=== PATIENT | male | born 1960 | race African-American/Black ===

== ENCOUNTER 2016-10-12 19:16 | Emergency (ER) | payer OTHER ==
[~2016-10-12] VITALS: Ht 172.7 cm; Wt 72.6 kg
[~2016-10-12 19:16] MED LIST: ACETAMINOPHEN-1 EAC2; CIPROFLOXACIN500 M1 PO; COLACE100 MG PO; FLAGYL500 MG PO; FOLIC ACID1 MG PO; HYDROXYCHLOROQ200 M1 PO; LORTAB 5 MG/5001 TA1 PO; METHOTREXATE 22.5 MG PO; NOHOMEMEDICATIONS; NORCO 5-325 TA1 EACH PO; ONDANSETRON HCL4 M2 PO; PHENERGAN 25 MG25 M1 PO; PREDNISONE 1 MG1 M1 PO; PREDNISONE 10 M10 M1; PROCTOFOAM-HC F10 GM RECTAL
[2016-10-12 19:53] LABS: ABSOLUTE NEUTROPHILS 7.5 thou/uL (1.4-8.2); BASOPHILS 0.7 % (0.0-2.0); EOSINOPHILS 0.6 % (0.0-3.0); HEMATOCRIT 44.3 % (42.0-52.0); HEMOGLOBIN 14.5 gm/dL (14.0-18.0); MANUAL DIFF NO; MCH 26.6 pg (26.0-34.0); MCHC 32.8 g/dL (28.0-37.0); MONOCYTES 3.9 % (1.0-8.0); PLATELET COUNT 301 thou/uL (150-400); POLYS 79.8 % (36.0-66.0); RBC 5.47 mil/uL (4.50-6.00); RDW 14.8 % (10.5-14.5); WBC 9.4 thou/uL (4.0-11.0)
[2016-10-12 20:03] LABS: CALCIUM 8.7 mg/dL (8.5-10.1); CREATININE 1.1 mg/dL (0.7-1.3); POTASSIUM 3.9 mmol/L (3.5-5.1)
[2016-10-12 20:08] LABS: ALBUMIN 3.7 g/dL (3.4-5.0); TOTAL BILIRUBIN 0.4 mg/dL (<0.1-1.0); TOTAL PROTEIN 7.6 g/dL (6.4-8.2)
[2016-10-12 20:42] LABS: URINE BILIRUBIN NEGATIVE (Negative); URINE BLOOD NEGATIVE (Negative); URINE GLUCOSE-RANDOM* NEGATIVE (Negative); URINE KETONES 2+ (Negative); URINE LEUKOCYTES-REFLEX NEGATIVE (Negative); URINE PROTEIN (DIPSTICK) NEGATIVE (Negative); URINE SPECIFIC GRAVITY 1.015 (1.003-1.035); URINE UROBILINOGEN 0.2 E.U./dl (0.2-1.0)
[2016-10-12 20:44] LABS: URINE COLOR YELLOW
[2016-10-12 20:51] LABS: AMP/METHAMP Negative (Negative); BARBITURATES Negative (Negative); BENZODIAZEPINES Negative (Negative); COCAINE Negative (Negative); METHADONE Negative (Negative); OPIATES POSITIVE (Negative); PCP Negative (Negative); THC POSITIVE (Negative)
[2016-10-12] MEDS ORDERED: PEPCID40 MG PO (21:04)
[2016-10-12] MEDS ORDERED: BENTYL 20 MG TA20 M1 PO (21:04)
[2016-10-12] MEDS ORDERED: PHENERGAN 25 MG25 M1 PO (21:04)
== END 2016-10-12 21:09 | disposition home or self-care (01) ==
LOC: ER 19:16
PROVIDERS: Emergency Medicine
DX: R11.2 Nausea with vomiting, unspecified (principal); F12.10 Cannabis abuse, uncomplicated; M41.9 Scoliosis, unspecified; M19.90 Unspecified osteoarthritis, unspecified site; L93.0 Discoid lupus erythematosus; K64.9 Unspecified hemorrhoids; Z88.5 Allergy status to narcotic agent; Z88.6 Allergy status to analgesic agent; F17.210 Nicotine dependence, cigarettes, uncomplicated

== ENCOUNTER 2017-03-13 18:11 | Emergency (ER) | payer OTHER ==
[~2017-03-13] VITALS: Ht 162.6 cm; Wt 59.0 kg
[~2017-03-13 18:11] MED LIST changes: +BENTYL 20 MG TA20 M1 PO; +PEPCID40 MG PO
[2017-03-13 18:35] LABS: ABSOLUTE NEUTROPHILS 7.8 thou/uL (1.4-8.2); BASOPHILS 0.7 % (0.0-2.0); EOSINOPHILS 1.7 % (0.0-3.0); HEMOGLOBIN 14.4 gm/dL (14.0-18.0); LYMPHOCYTES 23.9 % (24.0-44.0); MCH 26.2 pg (26.0-34.0); MCHC 32.7 g/dL (28.0-37.0); MCV 80.1 fL (80.0-100.0); MONOCYTES 4.8 % (1.0-8.0); PLATELET COUNT 344 thou/uL (150-400); POLYS 68.9 % (36.0-66.0); RBC 5.49 mil/uL (4.50-6.00); RDW 14.9 % (10.5-14.5); WBC 11.4 thou/uL (4.0-11.0)
[2017-03-13 18:36] LABS: MANUAL DIFF NO
[2017-03-13 18:40] LABS: CALCIUM 9.4 mg/dL (8.5-10.1); CREATININE 1.1 mg/dL (0.7-1.3); POTASSIUM 4.2 mmol/L (3.5-5.1)
[2017-03-13 18:46] LABS: ALBUMIN 4.4 g/dL (3.4-5.0); DIRECT BILIRUBIN 0.1 mg/dL (<0.1-0.3); TOTAL BILIRUBIN 0.3 mg/dL (<0.1-1.0); TOTAL PROTEIN 9.1 g/dL (6.4-8.2)
[2017-03-13 21:32] LABS: URINE BILIRUBIN NEGATIVE (Negative); URINE BLOOD NEGATIVE (Negative); URINE COLOR YELLOW; URINE GLUCOSE-RANDOM* NEGATIVE (Negative); URINE KETONES 1+ (Negative); URINE LEUKOCYTES-REFLEX NEGATIVE (Negative); URINE PROTEIN (DIPSTICK) NEGATIVE (Negative); URINE UROBILINOGEN 0.2 E.U./dl (0.2-1.0)
[2017-03-13] MEDS ORDERED: PERCOCET 5-3251 EACH PO (23:57)
[2017-03-13] MEDS ORDERED: ZOFRAN ODT4 MG PO (23:57)
== END 2017-03-14 00:15 | disposition home or self-care (01) ==
LOC: ER 18:11
PROVIDERS: Emergency Medicine
DX: R10.9 Unspecified abdominal pain (principal); M19.90 Unspecified osteoarthritis, unspecified site; F17.210 Nicotine dependence, cigarettes, uncomplicated; Z88.5 Allergy status to narcotic agent; Z88.6 Allergy status to analgesic agent

== ENCOUNTER 2018-05-13 08:54 | Emergency (ER) | payer OTHER ==
[~2018-05-13] VITALS: Ht 162.6 cm; Wt 59.0 kg
--- NOTE | ~2018-05-13 | EKG ---
[address] [address] [place] [address] ELECTROCARDIOGRAM REPORT Name: JULISA GALLO Room #: PRE [facility].#: [id number] Admission: Attend Phys: Discharge: Date of : 64 Report #: [id number] THIS REPORT FOR: //name// [facility] ED Test Date: 2018-05-13 Test Time: 09:20:56 Pat Name: JULISA GALLO Department: Room: Gender: Rn Patient Services: [facility] : 1960 Requested By: Juan Miles Order Number: [id number] MD: Hector Marte Measurements Intervals [place] Rate: 61 P: 58 [place]: 148 QRS: 66 QRSD: 94 T: 78 QT: 425 QTc: 428 Interpretive Statements Sinus rhythm No significant abnormality Compared to ECG 12/21/2012 18:33:[address] segment abnormality no longer present Prolonged QT interval no longer present Electronically Signed On 05-13-2018 10:47:34 CONFIGURATION MANAGEMENT ADVISOR by Hector Marte [email or web address] <ELECTRONICALLY SIGNED> By: Hector Marte MD, [facility] 05/13/18 1047 0920 09 Hector Marte MD, FACC /EPI
[~2018-05-13 08:54] MED LIST changes: +HYDROCODONE-AP1 EAC6 PO; +PERCOCET 5-3251 EACH PO; +ZOFRAN ODT4 MG PO
[2018-05-13] MEDS ORDERED: MOBIC7.5 MG PO ×2 (10:05)
[2018-05-13 10:07] LABS: ANION GAP 9 mmol/L (7-16); BUN 21 mg/dL (7-18); CALCIUM 9.8 mg/dL (8.5-10.1); CHLORIDE 103 mmol/L (98-107); CO2 28 mmol/L (21-32); CREATININE 1.2 mg/dL (0.7-1.3); GLUCOSE 165 mg/dL (74-106); POTASSIUM 3.7 mmol/L (3.5-5.1); SODIUM 140 mmol/L (136-145)
[2018-05-13 10:08] LABS: ABSOLUTE NEUTROPHILS 10.2 thou/uL (1.4-8.2); BASOPHILS 0.6 % (0.0-2.0); EOSINOPHILS 1.3 % (0.0-3.0); HEMATOCRIT 45.7 % (42.0-52.0); HEMOGLOBIN 14.7 gm/dL (14.0-18.0); LYMPHOCYTES 13.3 % (24.0-44.0); MCH 26.1 pg (26.0-34.0); MCHC 32.2 g/dL (28.0-37.0); MONOCYTES 3.3 % (1.0-8.0); PLATELET COUNT 346 thou/uL (150-400); POLYS 81.5 % (36.0-66.0); RBC 5.64 mil/uL (4.50-6.00); RDW 15.4 % (10.5-14.5); WBC 12.5 thou/uL (4.0-11.0)
[2018-05-13 10:16] LABS: ALBUMIN 4.2 g/dL (3.4-5.0); LIPASE 245 U/L (73-393); SGOT 20 U/L (15-37); SGPT 14 U/L (30-65); TOTAL BILIRUBIN 0.4 mg/dL (<0.1-1.0); TOTAL PROTEIN 8.9 g/dL (6.4-8.2); TROPONIN-I <0.06 ng/mL (<0.06)
[2018-05-13] MEDS ORDERED: ZANAFLEX4 MG PO (11:12)
[2018-05-13] MEDS ORDERED: NEURONTIN 300300 M1 PO (11:13)
[2018-05-13] MEDS ORDERED: TRAMADOL 50 MG50 MG PO (11:22)
[2018-05-13] MEDS ORDERED: PRILOSEC 20 MG20 MG PO (11:22)
[2018-05-13] MEDS ORDERED: ZOFRAN ODT8 MG PO (11:22)
[2018-05-13 11:28] LABS: URINE BILIRUBIN NEGATIVE (Negative); URINE BLOOD NEGATIVE (Negative); URINE CLARITY CLEAR; URINE COLOR YELLOW; URINE GLUCOSE-RANDOM* NEGATIVE (Negative); URINE KETONES 2+ (Negative); URINE LEUKOCYTES-REFLEX NEGATIVE (Negative); URINE NITRITE-REFLEX NEGATIVE (Negative); URINE PROTEIN (DIPSTICK) NEGATIVE (Negative); URINE SPECIFIC GRAVITY 1.015 (1.005-1.035); URINE UROBILINOGEN 0.2 E.U./dl (0.2-1.0)
[2018-05-13 12:28] VITALS: BP 110/62
== END 2018-05-13 12:30 | disposition home or self-care (01) ==
LOC: ER 08:54
PROVIDERS: Emergency Medicine
DX: R10.9 Unspecified abdominal pain (principal); R11.2 Nausea with vomiting, unspecified; R19.7 Diarrhea, unspecified; M19.90 Unspecified osteoarthritis, unspecified site; M32.9 Systemic lupus erythematosus, unspecified; Z87.19 Personal history of other diseases of the digestive system; Z88.5 Allergy status to narcotic agent; Z88.6 Allergy status to analgesic agent

== ENCOUNTER 2018-07-06 14:41 | Inpatient (IN) | payer OTHER ==
[~2018-07-06] VITALS: Ht 167.6 cm; Wt 56.2 kg
--- NOTE | ~2018-07-06 | HC ---
[facility] [address] [place] [address] CONSULTATION Name: JULISA GALLO Room #: 349-I [facility] IN ..#: [id number] Admission: 07/06/18 Attend Phys: Yonatan Chiang MD Discharge: 07/07/18 Date of : 64 Report #: [id number] THIS REPORT FOR: //name// CC: Yonatan CALDERON unknown DATE OF SERVICE: 07/07/2018 GASTROENTEROLOGY CONSULTATION REASON FOR CONSULTATION: The patient is a 57-year-old male who presented to [facility] with hematemesis. HISTORY OF PRESENT ILLNESS: This 57-year-old male presented to [facility] with complaints of abdominal pain, which started the day prior to admission. Over the previous day or so, his symptoms progressively worsened. He also reported hematemesis. He was admitted and a CT scan was obtained, which revealed thickening of the distal esophagus, small hiatus hernia and also thickening of the duodenum. It is notable that he does use Mobic for his rheumatoid arthritis. He denies previous history of ulcer disease or previous history of GI bleeding. PAST MEDICAL HISTORY: Notable for high blood pressure, rheumatoid arthritis and previous pancreatitis. He has also had problems with cyclic vomiting. He does use marijuana. ALLERGIES: IBUPROFEN AND HYDROMORPHONE. HOME MEDICATIONS: Neurontin 300 mg twice daily, meloxicam 7.5 mg daily, ondansetron 4 mg every 8 hours as needed, pantoprazole 40 mg daily. FAMILY HISTORY: No family history of colon cancer. SOCIAL HISTORY: He does smoke marijuana. REVIEW OF SYSTEMS: GENERAL: No change in weight, fever or chills. PULMONARY: No cough, pneumonia or tuberculosis. CARDIOVASCULAR: No chest pain or chest tightness. PHYSICAL EXAMINATION: GENERAL: Well-developed, well-nourished, pleasant male, in no acute distress. VITAL SIGNS: Blood pressure 113/67, pulse 68. HEENT: Anicteric. Pupils equal and round. Oropharynx clear. NECK: Supple. [facility] [address] [place] [address] CONSULTATION Name: JULISA GALLO [facility] ..#: [id number] Admission: 07/06/18 Attend Phys: Yonatan Chiang MD Discharge: 07/07/18 Date of : 64 Report #: [id number] CHEST: Clear. HEART: Regular rate and rhythm. Normal S1, S2. ABDOMEN: Normal bowel sounds, soft, nontender without hepatosplenomegaly or masses. ASSESSMENT: 1. Abdominal pain. 2. Hematemesis. 3. Use nonsteroidals. 4. Rheumatoid arthritis. PLAN: See upper endoscopy report. By: [id number] [id number] Clarke Mosley MD /nt
[~2018-07-06 14:41] MED LIST changes: +MOBIC7.5 MG PO; +NEURONTIN 300300 M1 PO; +PRILOSEC 20 MG20 MG PO; +TRAMADOL 50 MG50 MG PO; +ZANAFLEX4 MG PO; +ZOFRAN ODT8 MG PO
[2018-07-06 14:42] VITALS: BP 167/100
[2018-07-06 15:04] LABS: ABSOLUTE NEUTROPHILS 8.3 thou/uL (1.4-8.2); BASOPHILS 0.5 % (0.0-2.0); EOSINOPHILS 1.7 % (0.0-3.0); HEMATOCRIT 50.2 % (42.0-52.0); LYMPHOCYTES 20.2 % (24.0-44.0); MCH 25.6 pg (26.0-34.0); MCHC 31.8 g/dL (28.0-37.0); MCV 80.7 fL (80.0-100.0); MONOCYTES 5.1 % (1.0-8.0); PLATELET COUNT 323 thou/uL (150-400); POLYS 72.5 % (36.0-66.0); RBC 6.22 mil/uL (4.50-6.00); RDW 15.1 % (10.5-14.5); WBC 11.5 thou/uL (4.0-11.0)
[2018-07-06 15:35] LABS: ANION GAP 12 mmol/L (7-16); BUN 25 mg/dL (7-18); CALCIUM 9.8 mg/dL (8.5-10.1); CHLORIDE 104 mmol/L (98-107); CO2 25 mmol/L (21-32); CREATININE 1.1 mg/dL (0.7-1.3); GLUCOSE 135 mg/dL (74-106); POTASSIUM 4.1 mmol/L (3.5-5.1); SODIUM 141 mmol/L (136-145)
[2018-07-06 15:43] LABS: ALBUMIN 4.2 g/dL (3.4-5.0); LIPASE 221 U/L (73-393); SGOT 22 U/L (15-37); SGPT 15 U/L (30-65); TOTAL BILIRUBIN 0.4 mg/dL (<0.1-1.0); TROPONIN-I <0.06 ng/mL (<0.06)
--- NOTE | 2018-07-06 16:20 | EKG ---
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
--- NOTE | 2018-07-06 17:03 | NUR ---
PT'S CALLED FOR AN UPDATE. HAD HER TALK TO PROVIDER ABOUT PT'S CONDITION.
[2018-07-06 17:37] VITALS: BP 106/66
[2018-07-06 17:54] LABS: URINE CLARITY CLEAR; URINE COLOR YELLOW; URINE SPECIFIC GRAVITY < 1.005 (1.005-1.035)
[2018-07-06 17:55] LABS: URINE BILIRUBIN NEGATIVE (Negative); URINE BLOOD NEGATIVE (Negative); URINE GLUCOSE-RANDOM* NEGATIVE (Negative); URINE KETONES 1+ (Negative); URINE LEUKOCYTES-REFLEX NEGATIVE (Negative); URINE NITRITE-REFLEX NEGATIVE (Negative); URINE PROTEIN (DIPSTICK) NEGATIVE (Negative)
[2018-07-06 17:57] VITALS: BP 107/59
[2018-07-06 17:58] LABS: AMP/METHAMP Negative (Negative); BARBITURATES Negative (Negative); BENZODIAZEPINES POSITIVE (Negative); COCAINE Negative (Negative); METHADONE Negative (Negative); OPIATES POSITIVE (Negative); PCP Negative (Negative)
[2018-07-06 18:14] VITALS: BP 121/76
[2018-07-06 19:15] LABS: HEMATOCRIT 44.1 % (42.0-52.0); HEMOGLOBIN 14.2 gm/dL (14.0-18.0)
--- NOTE | 2018-07-06 22:44 | NUR ---
PATIENT WAS A NEW ADMISSION TO THE UNIT BETWEEN SHIFT CHANGE. HE ARRIVED VIA CART FROM THE ER AND WAS ABLE TO AMBULATE TO BED INCIDENT FREE APPEARING STRONG AND BALANCED WHEN WALKING. PATIENT IS ALERT AND FULLY ORIENTED AND ABLE TO PARTICIPATE IN HIS ADMISSION. NURSE TO COMPLETE ADMISSION AND INITIATE CARE PLAN.
[2018-07-06 23:46] VITALS: BP 110/69
[2018-07-07 04:13] VITALS: BP 103/67
[2018-07-07 05:45] LABS: ABSOLUTE NEUTROPHILS 4.5 thou/uL (1.4-8.2); BASOPHILS 0.3 % (0.0-2.0); EOSINOPHILS 2.5 % (0.0-3.0); HEMATOCRIT 38.4 % (42.0-52.0); HEMOGLOBIN 12.4 gm/dL (14.0-18.0); LYMPHOCYTES 35.2 % (24.0-44.0); MCH 26.2 pg (26.0-34.0); MCHC 32.4 g/dL (28.0-37.0); MCV 81.1 fL (80.0-100.0); MONOCYTES 8.5 % (1.0-8.0); PLATELET COUNT 251 thou/uL (150-400); POLYS 53.5 % (36.0-66.0); RBC 4.73 mil/uL (4.50-6.00); RDW 14.5 % (10.5-14.5); WBC 8.5 thou/uL (4.0-11.0)
[2018-07-07 05:54] LABS: CALCIUM 8.2 mg/dL (8.5-10.1); MAGNESIUM 1.8 mg/dL (1.8-2.4); POTASSIUM 3.9 mmol/L (3.5-5.1)
[2018-07-07 07:10] VITALS: BP 113/67
--- NOTE | 2018-07-07 09:35 | NUR ---
Patient left for GI lab at 0915.
[2018-07-07 11:51] VITALS: BP 121/78
[2018-07-07] MEDS ORDERED: PANTOPRAZOLE SO40 M1 PO (11:56)
[2018-07-07] MEDS ORDERED: OMEPRAZOLE 20 M20 M1 PO (12:36)
[2018-07-07 12:37] VITALS: BP 121/78
--- NOTE | 2018-07-07 12:40 | NUR ---
ASSESSMENT: CM REVIEWED CHART AND MET WITH PATIENT AT THE BEDSIDE. PT IS ALERT AND ORIENTED X4. PT IS FULLY INDEPENDENT WITH ADLS AND AMBULATION. PT REPORTS HE HAS NO DME OR THE NEED FOR IT. PT HAS BEEN CLEARED TO DISCHARGE HOME TODAY AND REPORTS HAVING NO NEEDS.
--- NOTE | 2018-07-07 16:52 | P ---
[facility] [address] [place] [address] PROCEDURE REPORT Name: JULISA GALLO Room #: 349-I [facility] M.R.#: [id number] Admission: 07/06/18 Attend Phys: Yonatan Chiang MD Discharge: 07/07/18 Date of : 64 Report #: [id number] THIS REPORT FOR: //name// CC: Yonatan Chiang FAM unknown BRIEF HISTORY: The patient is a 57-year-old male with hematemesis. He also has an abnormal CT revealed thickening of the duodenum and thickening in the distal esophagus. PREOPERATIVE DIAGNOSES: Hematemesis and abnormal CT. POSTOPERATIVE DIAGNOSES: 1. Moderately severe diffuse erosive gastritis. 2. Mild esophagitis. 3. Small hiatus hernia. MEDICATIONS: Deep sedation with propofol per Anesthesia. SPECIMEN: Biopsies of gastritis. ESTIMATED BLOOD LOSS: 3 mL. PROCEDURE: EGD with biopsy. FINDINGS: Prior to propofol sedation, procedure of upper endoscopy discussed with the patient as well as potential risks and its complications. He indicates he understands and desires to proceed. DESCRIPTION OF PROCEDURE: With the patient in left lateral decubitus position, the Olympus video endoscope was inserted in the cervical esophagus under direct vision without difficulty. Examination of this organ through its entire length revealed normal esophageal mucosa. There were some minor irregularities along the squamocolumnar junction consistent with a mild esophagitis. On the CAT scan, reported to be thickening esophagus. I did not see evidence of mass, lesions or mucosal thickening. Intermittently, a small hiatus hernia was seen. The mucosa in the hernia was normal. There is no evidence of bleeding in the distal esophagus. The scope was advanced in the stomach, was examined on end view as well as retroflexed views. There was a pattern of a moderately severe diffuse gastritis with erosions throughout the entire stomach. There is no blood in the stomach. Active bleeding was not seen. He may have had some oozing from some of these erosions. It is noted he does take meloxicam. Upon retroflexion, no mass lesions were seen. The pylorus was normal. Duodenal bulb and postbulbar sweep were normal. The scope was advanced to the level of the ligament of Treitz and no mucosal abnormalities were seen. There is reported thickening on the CT, but no mucosal abnormalities were seen on endoscopic examination of the ligament of Treitz. At that point, the scope was slowly [facility] [address] [place] [address] PROCEDURE REPORT Name: JULISA GALLO Room #: 349-I [facility] IN .R.#: [id number] Admission: 07/06/18 Attend Phys: Yonatan Chiang MD Discharge: 07/07/18 Date of : 64 Report #: [id number] withdrawn and careful circumferential views were obtained. The patient tolerated the procedure well. DISPOSITION: The patient with hematemesis, does use Mobic. I suspect he may have had some oozing from the erosive changes, but I do not see significant bleeding. The likelihood of significant bleeding going forward I think is low. I would agree with PPI. If possible, try to discontinue the Mobic or switch nonsteroidals. At a minimal though, I would co-administrate a PPI with nonsteroidals if needed. We will advance diet at this point in time. <ELECTRONICALLY SIGNED> By: Clarke Mosley MD 07/07/18 1652 1111 1328 Clarke Mosley MD /nt
--- NOTE | 2018-07-07 17:41 | NUR ---
Assumed care of patient at 0700. Vitals have been stable. Patient left for GI lab this morning for EGD. EGD was negative per reports - no evidence of bleeding. Return to floor, patient remains alert and oriented x4. Displays steady gait, up ad tila. No pain or nausea. Tolerated regular diet for lunch. Discharge orders received. Reviewed instructions with patient and spouse at bedside. Prescription for Omeprazole given by Dr. Mosley; cancelled prescriptions for Protonix per Dr. Chiang, does not need both. Provided patient with list of primary care physicians per request. IV and telemetry discontinued. Belongings gathered. Does not have meds in pharmacy and no items locked with security. Transported to private vehicle via wheelchair to discharge home.
--- NOTE | 2018-07-10 15:06 | PATH ---
[facility] [address] [place] [address] PATHOLOGY RPT PROCEDURE Name: JULISA RAMIREZ Room #: 349-I [facility] IN M.R.#: [id number] Admission: 07/06/18 Date of : 64 Discharge: 07/07/18 Report #: [id number] Path Case #: [id number] [facility] Accession Number: [id number] . 01 Material submitted: . GASTRITIS BIOPSY . 01 Clinical history: . Pre-OP DX: Hematemesis, abnormal CT Post-OP DX: Gastritis, esophagitis . 02 Diagnosis: Gastric mucosa, gastritis, endoscopic biopsy: - Helicobacter pylori induced moderate active gastritis associated with intestinal metaplasia. - Negative for atrophy or dysplasia. - Well-controlled Helicobacter pylori immunohistochemical stain performed. (IUV:adelaide; 07/10/2018) QMS/07/10/2018 . 02 Electronically signed: . Anjali Díaz MD, Pathologist NPI- [id number] . 01 Gross description: . Received in formalin labeled "Julisa Ramirez, gastritis, BX, rule out H. pylori," are 8 segments of granda soft tissue measuring 1.5 x 0.9 x 0.3 cm in aggregate dimensions and ranging from 0.3 to 0.5 cm in maximum dimension. The specimen is submitted entirely in cassette A1. (TSD; 07/07/2018) TOB/TOB . 02 Pathologist provided ICD-10: K29.60, B96.81 . 02 CPT . 898291, Y79346 Specimen Comment: A courtesy copy of this report has been sent to Specimen Comment: [phone], . Specimen Comment: Report sent to / DR DESIR Performed at: 01 [facility] [address] [id number] MD Garrett Botello MD Phone: [phone] Performed at: [address] [id number] [address] [address] PATHOLOGY RPT PROCEDURE Name: JULISA RAMIREZ ZAKI Room #: 349-I DIS IN M.R.#: [id number] Admission: 07/06/18 Date of : 64 Discharge: 07/07/18 Report #: [id number] Path Case #: [id number] MD Anjali Vadlamani MD Phone: [phone]
== END 2018-07-07 12:58 | disposition home or self-care (01) | DRG 379 ==
LOC: ER 14:41 → 3W 16:48 → EROBS 16:48 → 3W 17:57
PROVIDERS: Nurse Practitioner; Physician Assistant; ADMIT Hospitalist
PROC: 0DB68ZX Excision of Stomach, Via Natural or Artificial Opening Endoscopic, Diagnostic (ICD-10-PCS; principal; 2018-07-06)
DX: K29.01 Acute gastritis with bleeding (principal); M19.90 Unspecified osteoarthritis, unspecified site; F12.90 Cannabis use, unspecified, uncomplicated; M06.9 Rheumatoid arthritis, unspecified; K20.9 Esophagitis, unspecified; K44.9 Diaphragmatic hernia without obstruction or gangrene; I10 Essential (primary) hypertension; F17.210 Nicotine dependence, cigarettes, uncomplicated; Z71.6 Tobacco abuse counseling; Z88.6 Allergy status to analgesic agent; Z88.8 Allergy status to other drugs, medicaments and biological substances
CPT/HCPCS: 10879; 62110; 62900; 70005

== ENCOUNTER 2021-07-25 18:23 | Emergency (ER) | payer OTHER ==
[~2021-07-25] VITALS: Ht 160 cm; Wt 59.0 kg
[~2021-07-25 18:23] MED LIST changes: +OMEPRAZOLE 20 M20 M1 PO; +PANTOPRAZOLE SO40 M1 PO
[2021-07-25 18:49] LABS: HEMATOCRIT 47.7 % (42.0-52.0); MCH 26.2 pg (26.0-34.0); MCHC 31.5 g/dL (28.0-37.0); RBC 5.74 mil/uL (4.50-6.00); RDW 15.4 % (10.5-14.5); WBC 8.9 thou/uL (4.0-11.0)
[2021-07-25 18:58] LABS: CALCIUM 9.3 mg/dL (8.5-10.1); CREATININE 1.1 mg/dL (0.7-1.3); POTASSIUM 3.8 mmol/L (3.5-5.1)
[2021-07-25 19:08] LABS: ALBUMIN 4.2 g/dL (3.4-5.0); TOTAL BILIRUBIN 0.4 mg/dL (0.2-1.0); TOTAL PROTEIN 8.2 g/dL (6.4-8.2)
[2021-07-25 19:16] LABS: URINE BILIRUBIN NEGATIVE (Negative); URINE BLOOD NEGATIVE (Negative); URINE CLARITY CLEAR; URINE COLOR YELLOW; URINE GLUCOSE-RANDOM* NEGATIVE (Negative); URINE KETONES 2+ (Negative); URINE LEUKOCYTES-REFLEX NEGATIVE (Negative); URINE NITRITE-REFLEX NEGATIVE (Negative); URINE PROTEIN (DIPSTICK) 1+ (Negative); URINE SPECIFIC GRAVITY 1.015 (1.005-1.035)
[2021-07-25 19:22] LABS: AMP/METHAMP Negative (Negative); BARBITURATES Negative (Negative); BENZODIAZEPINES Negative (Negative); COCAINE Negative (Negative); METHADONE Negative (Negative); OPIATES Negative (Negative); PCP Negative (Negative)
[2021-07-25 19:29] LABS: CASTS None Seen /LPF (None Seen); MUCUS >6 Heavy strn/LPF (None Seen); SQUAMOUS 0-3 Few /LPF (0-3); URINE RBC 1-2 Rare /HPF (NONE SEEN); URINE WBC-REFLEX 0-5 Rare /HPF (0-5)
[2021-07-25 19:30] LABS: AMORPHOUS PHOSPHATES Moderate /LPF (None Seen)
[2021-07-25] MEDS ORDERED: PROTONIX40 M2 PO (20:22)
[2021-07-25] MEDS ORDERED: ZOFRAN ODT4 MG PO (20:22)
[2021-07-25] MEDS ORDERED: CARAFATE1 GM PO (20:22)
[2021-07-25] MEDS ORDERED: CEPHALEXIN500 MG PO (20:23)
--- NOTE | 2021-07-25 20:43 | EKG ---
[address] [address] [place] [address] ELECTROCARDIOGRAM REPORT Name: JULISA GALLO [id number] Admission: 07/25/21 Attend Phys: Discharge: Date of : 64 Report #: [id number] 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 : 1960 Requested By: Theresa Galeas Order Number: [id number] MD: Hector Marte Measurements Intervals [place] Rate: 67 P: 78 [place]: 159 QRS: 62 QRSD: 105 T: 56 QT: 406 QTc: 429 Interpretive Statements Sinus rhythm Nonspecific T wave abnormality Baseline wander in multiple lead(s) Compared to ECG 07/06/2018 14:55:39 Anterior T wave inversion is no longer present Electronically Signed On 07-25-2021 20:43:06 RADIO SALES ACCOUNT EXECUTIVE by Hector Marte [email or web address] <ELECTRONICALLY SIGNED> By: Hector Marte MD, [facility] 07/25/212042 44 1845 Hector Marte MD, FACC /EPI
[2021-07-25 21:01] VITALS: BP 122/76
== END 2021-07-25 21:02 | disposition home or self-care (01) ==
LOC: ER 18:23
PROVIDERS: Nurse Practitioner Family
DX: K29.70 Gastritis, unspecified, without bleeding (principal); Z20.822 Contact with and (suspected) exposure to COVID-19; N39.0 Urinary tract infection, site not specified; M19.90 Unspecified osteoarthritis, unspecified site; F17.210 Nicotine dependence, cigarettes, uncomplicated; Z79.899 Other long term (current) drug therapy; Z88.6 Allergy status to analgesic agent; Z88.8 Allergy status to other drugs, medicaments and biological substances